=== PATIENT | male | born 1950 | race Caucasian/White ===

== ENCOUNTER → 2019-12-23 | Outpatient (CLI) | payer MEDICARE ==
--- NOTE | 2019-12-23 19:13 | REP ---
Clinical: Left lower extremity nonhealing ulcer with history of diabetes. Technique: Real time choudhury scale and color Doppler evaluation of the left lower extremity arterial vasculature using linear high frequency transducer. Findings: The MIGUEL was not obtained due to noncompressibility. Ultrasound examination demonstrates moderate to significant partially calcified atheromatous plaquing without evidence of stenosis or occlusion. Color Doppler interrogation demonstrates primarily triphasic wave patterns (biphasic wave pattern noted in the profunda and tibioperoneal trunk). PSV(cm/sec) LEFT Common femoral artery 84.0 cm/s Profunda femoris artery 88.0 cm/s Proximal superficial femoral artery 74.0 cm/s Mid superficial femoral artery 98.0 cm/s Distal superficial femoral artery 85.0 cm/s Popliteal artery 97.0 cm/s Proximal SOFIA 93.0 cm/s Tibioperoneal trunk 69.0 cm/s Proximal PRODUCT TEST SPECIALIST 54.0 cm/s Distal PRODUCT TEST SPECIALIST 68.0 cm/s Distal SOFIA 106.0 cm/s Impression: Moderate to significant partially calcified atheromatous plaquing without evidence for stenosis or occlusion. Electronically Signed by Mamadou Li MD 12/23/2019 07:05 P
== END ==
LOC: M RAD 11:39
PROVIDERS: ATTEND Surgery
DX: T14.8XXA Other injury of unspecified body region, initial encounter (principal); L97.522 Non-pressure chronic ulcer of other part of left foot with fat layer exposed

== ENCOUNTER → 2023-01-22 | Outpatient (CLI) | payer MEDICARE | LOC: M RAD 14:30 | PROVIDERS: ATTEND Surgery | DX: I87.312 Chronic venous hypertension (idiopathic) with ulcer of left lower extremity (principal); L97.822 Non-pressure chronic ulcer of other part of left lower leg with fat layer exposed; I87.391 Chronic venous hypertension (idiopathic) with other complications of right lower extremity ==